=== PATIENT | female | born 1975 | race Two or more races ===

== ENCOUNTER → 2023-11-26 13:01 | Outpatient (REF) | payer OTHER, SELFPAY | LOC: RAD 13:01 | PROVIDERS: ATTENDING PHYSICIAN Student in an Organized Health Care Education/Training Program | DX: M54.16 Radiculopathy, lumbar region (principal) | CPT/HCPCS: 72110; 73522 ==

== ENCOUNTER 2024-01-18 10:43 | Emergency (ER) | payer OTHER, SELFPAY ==
[2024-01-18 10:44] VITALS: BP 139/82
[2024-01-18 11:40] VITALS: BMI 24.4
[2024-01-18 11:50] VITALS: BP 114/72
[2024-01-18 12:00] VITALS: BP 112/67
[2024-01-18 12:00] LABS: % Basophils 0.2 % (0-2); % Eosinophils 0.1 % (0-6); % Immature Granulocytes 1.9 % (0-0.5); % Lymphocytes 2.7 % (20.5-51.1); % Monocytes 3.8 % (1.7-9.3); % Neutrophils 91.3 % (42.2-75.2); Absolute Immature Granulocytes 0.3 10^3/uL (0-0.05); Absolute Lymphocytes 0.5 10^3/uL (1.2-3.4); Absolute Monocytes 0.6 10^3/uL (0.1-0.6); Hematocrit 35.5 % (37.0-47.0); Hemoglobin 12.1 g/dL (12.0-16.0); Mean Corp Hgb Conc. 34.1 g/dL (33.0-37.0); Mean Corpuscular Hgb 30.6 pg (27.0-31.0); Mean Corpuscular Volume 89.6 fL (81.0-99.0); Mean Platelet Volume 9.4 fL (7.4-10.4); Nucleated Red Blood Cells % 0 %; Platelet Count 341 10^3/uL (130-400); Red Blood Cell Count 3.96 10^6/uL (4.20-5.40); Red Cell Dist. Width 13.1 % (11.5-14.5); White Blood Cell Count 16.4 10^3/uL (4.8-10.8)
[2024-01-18 12:01] LABS: Urine Albumin Negative (Neg - Trace); Urine Bilirubin Negative (Negative); Urine Character Clear (Clear); Urine Color Yellow; Urine Glucose Negative (Negative); Urine Ketone Negative (Negative); Urine Leukocyte Trace (Negative); Urine Nitrite Negative (Negative); Urine Occult Blood Negative (Negative); Urine Urobilinogen Negative (Neg - 1+)
[2024-01-18 12:15] LABS: ALT (SGPT) 33 U/L (0-35); AST (SGOT) 23 U/L (14-36); Albumin 4.3 g/dl (3.5-5.0); Alkaline Phosphatase 81 U/L (38-126); Blood Urea Nitrogen 13 mg/dl (7-17); Calcium 10.3 mg/dl (8.4-10.2); Carbon Dioxide 28 mmol/L (22-30); Chloride 104 mmol/L (98-107); Estimated Creatinine Clearance 99 ml/min; Glucose 98 mg/dl (70-99); Potassium 4.3 mmol/L (3.5-5.1); Sodium 139 mmol/L (135-145); Total Bilirubin 0.7 mg/dl (0.2-1.3); Total Protein 7.1 g/dl (6.3-8.2); eGFR > 60.00
[2024-01-18 12:30] LABS: Urine Bacteria Few (Negative); Urine Red Blood Cell 0-2 /HPF (0-2)
--- NOTE | 2024-01-18 13:34 | ED.GENMED ---
History of Present Illness
General
Chief Complaint: Swelling
Source: patient
Exam Limitations: none
Time Seen by Provider: 01/18/24 10:58
Nursing documentation reviewed up to this point in time: agreed with
History of Present Illness
History of Present Illness:
48-year-old female presents for bilateral leg swelling over the past 2 days. About 6 weeks ago she stated after she was having sciatica in the right leg she had an MRI at [facility] and was diagnosed with a 'sacral mass.' She had a biopsy and states the
results were 'inconclusive,' and the specimen was sent to the [facility] and she is awaiting the histopathology on that. She sees Dr. Marcin Vogel, neurosurgeon at [facility]. She called his office because of her swelling that she noted over the past 2
days.
She was told to come to the ER for evaluation.
She has persistent pain in the low back and down her right leg, but today feels pain radiating down both legs. She denies weakness in the legs.
Her medications include:
Fentanyl patch
Dexamethasone
Aleve 4 times daily
Docusate sodium
Senna
She had a normal bowel movement today. She denies loss of control of bowel or bladder. She denies neurological weakness in her legs.
Past History
Past History
ED Past Medical History: Other (Sacral mass, right low back pain with sciatica)
ED Past Surgical History: Other ([place] teeth)
Social History
Tobacco: Non-smoker
Alcohol: None
Personal:
Living: with family
Employment: Employed
Review of Systems
Review of Systems
Allergies reviewed?: Yes
All Other Systems: ROS reviewed and negative except as documented in HPI and ROS
Constitutional: Denies fever, fatigue or chills
Cardiac: Denies chest pain
ABD/GI: Denies abdominal pain or constipated
: Denies incontinence or difficulty voiding
Musculoskeletal: Reports edema ( swelling of both of her legs); Denies joint swelling or back pain (radiates down both posterior thighs today, usually only down the right leg)
Skin: Reports no symptoms
Neurological: Reports no symptoms
Phy Exam
Physical Exam
Physical Exam:
GENERAL: No acute distress. A&Ox3.
CONSTITUTIONAL: Afebrile.
EYES: clear, conjunctivae normal
RESPIRATORY: Regular respirations, nonlabored, lungs clear.
CARDIOVASCULAR: Regular rate and rhythm, no murmurs, no rubs.
GI: Soft, nontender, normal BS
MUSCULOSKELETAL: No spinal bony tenderness, full ROM, ambulating w normal gait. Moves with ease. Well perfused. Subjective swelling both LE's, no pitting, mild swelling right ankle noted, no notable swelling otherwise. Distal n/v intact.
SKIN: Warm, dry, normal
PSYCH: Normal mood and affect. Well kept, interactive and appropriate
NEUROLOGIC: Awake, alert and oriented. No focal neurological deficits. Strength 5/5 throughout. Dorsi and plantar flexion intact. Normal patellar reflexes. Ambulates with steady gait.
Scores
Heart Failure Risk
Heart Failure Risk Score: Not Applicable
Course
Orders/Labs/Results
Orders:
Orders
01/18/24 11:[address] [CT Pelvis With Iv Contrast] Urgent
Comment:
Reason For Exam: uche leg swelling, know sacral mass
US Periph Venous LOWER Ext Uche Urgent
Comment:
Reason For Exam: swelling, being w/u for sacral mass
01/18/24 11:48
Complete Blood Count/With Diff Urgent
Comprehensive Metabolic Panel Urgent
HCG, Serum Qualitative Screen Urgent
Comment: ADD ON
Urinalysis Reflex To Culture Urgent
Date Specimen was Collected: 01/18/24
Time Specimen was Collected: 11:41
Urine Microscopic Reflex Cult Urgent
01/18/24 12:18
Add On- LAB Urgent
Tests Added?: hcg
06/21/24 12:19
Add On- LAB Urgent
Tests Added?: serum HCG qualitative
Abnormal Lab Results
01/18/24
11:48
WBC 16.4 H 10^3/uL
(4.8-10.8)
RBC 3.96 L 10^6/uL
(4.20-5.40)
Hct 35.5 L %
(37.0-47.0)
Abs Immat Gran (auto) 0.3 H 10^3/uL
(0-0.05)
Absolute Neuts (auto) 15.0 H 10^3/uL
(1.4-6.5)
Absolute Lymphs (auto) 0.5 L 10^3/uL
(1.2-3.4)
Immature Gran % 1.9 H %
(0-0.5)
Neutrophils % 91.3 H %
(42.2-75.2)
Lymphocytes % 2.7 L %
(20.5-51.1)
Calcium 10.3 H mg/dl
(8.4-10.2)
Leukocyte Esterase Rfl Trace A
(Negative)
Urine Bacteria (Reflex) Few A
(Negative)
01/18/24 11:48
01/18/24 11:48
Vital Signs
Initial and Last Documented VS:
Initial Vital Signs
Temp Pulse Resp BP Pulse Ox
98.2 F 102 18 139/82 100
01/18/24 10:44 01/18/24 10:44 01/18/24 10:44 01/18/24 10:44 01/18/24 10:44
Last Documented Vital Signs
Temp Pulse Resp BP Pulse Ox
98.2 F 102 18 112/67 99
01/18/24 10:44 01/18/24 10:44 01/18/24 10:44 01/18/24 12:00 01/18/24 16:15
MDM/Problems Addressed
Differential Diagnosis Includes:
Cauda equina, DVT, pelvic mass occluding vessels of the pelvis/LEs
MDM/Problems Addressed:
48-year-old female presents for bilateral leg swelling over the past 2 days. About 6 weeks ago she stated after she was having sciatica in the right leg she had an MRI at [facility] and was diagnosed with a 'sacral mass.' She had a biopsy and states the
results were 'inconclusive,' and the specimen was sent to the [facility] and she is awaiting the histopathology on that. She sees Dr. Marcin Vogel, neurosurgeon at [facility]. She called his office because of her swelling that she noted over the past 2
days.
She was told to come to the ER for evaluation.
She has persistent pain in the low back and down her right leg, but today feels pain radiating down both legs. She denies weakness in the legs.
She had a normal bowel movement today. She denies loss of control of bowel or bladder. She denies neurological weakness in her legs.
12:30 PM: CBC: WBC 16.4 With elevated neutrophils (pt on steroid)
CMP: Normal
hCG negative
UA negative
4:[address] pelvis with IV contrast radiology report read:
IMPRESSION:There is an expansile destructive noncalcified soft tissue mass in the right sacrum and posterior aspect of the right ilium, crossing the sacroiliac joint and measuring approximately 5.7 x 9.2 x 8.0 cm in AP, transverse and craniocaudal
dimensions respectively. 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
Ultrasound bilateral lower extremities negative for DVT
Results discussed with nurse practitioner Rebeca Lima at [facility] who is the 1 who spoke with patient earlier today and sent her here. Rebeca states they were simply concerned about vascular occlusion or cauda equina, none of which the
patient has. Rebeca states that the patient is aware of her diagnosis and that today's CAT scan is no different than what has been discussed with her in the past.
Rebeca states that the biopsy results for them showed atypical cells and were sent out to [facility] to further differentiate so that they can determine the proper treatment for her.
She states that patient does have a follow-up appointment with oncology on 01/21.
I discussed the findings with the patient, she was aware
She will keep her follow-up appointment as scheduled.
She wonders what she could do about the swelling in her legs, no significant swelling objectively but we discussed her elevating her legs is much as she can, compression stockings which she states she thinks she has some at home.
Patient ambulated out with normal gait. She was very appreciative of the care
*Critical Care Note
Total Time (30-74mins, 75-104mins- exclusive of procedures): Not Applicable
ED Attending Note
-
Portions of this chart may have been created with voice recognition software.� Occasional wrong word or��sound alike� substitutions may have occurred due to the inherent limitations of voice recognition software.
Discharge Plan
Departure
Patient Disposition: Home (Routine Discharge)
Date of Disposition: 01/18/24
Time of Disposition: 16:39
Patient with high blood pressure during this ER visit?: No
Condition: Fair
Discharge Problem:
Sacral mass
Prescriptions:
No Action
phenazopyridine [Pyridium] 100 mg tablet
100 mg PO TID PRN (Reason: Pain) Qty: 7 0RF
Referrals:
Linda Peep PA-C [Family Provider] -
Activity Restrictions/Additional Instructions:
As we discussed, I spoke with nurse practitioner Rebeca Christy who reviewed your CAT scan results and agrees there is nothing new in today's CAT scan from your previous ones.
There is no indication of any blood vessel occlusion.
Your ultrasound shows no clot.
Your blood work and urine tests are normal. Mild elevation in WBC most likely from the steroid you are taking
Keep your oncology appointment for 01/21.
Seek medical care IMMEDIATELY for loss of bowel or bladder control, weakness in the legs or numbness in the saddle area (inner thighs and vaginal areas)
Interventions
Interventions:
*Risk Screen - Suicide Last Done: 01/18/24 10:49
*General Assessment Last Done: 01/18/24 10:44
*Neglect/Abuse Screening Last Done: 01/18/24 10:49
ED- Fall Risk Assessment Last Done: 01/18/24 17:05
*ED COVID-19 Vaccine History Last Done: 01/18/24 10:44
*Nursing Disposition Last Done: 01/18/24 17:05
ED- Cardiac Assessment Last Done: 01/18/24 11:42
ED- Pulmonary Assessment Last Done: 01/18/24 11:42
ED-Skin Assessment Last Done: 01/18/24 11:42
Discharge Date and Time
Discharge Date/Time: 01/18/24 17:06
Print Language: YI
[2024-01-18 14:13] LABS: HCG, Serum Qualitative Screen Negative
== END 2024-01-18 17:06 | disposition home or self-care (01) ==
LOC: EMR 10:43
PROVIDERS: Registered Nurse; EMERGENCY PHYSICIAN Emergency Medicine; FAMILY PHYSICIAN Student in an Organized Health Care Education/Training Program
DX: M53.3 Sacrococcygeal disorders, not elsewhere classified (principal); R60.9 Edema, unspecified; M79.604 Pain in right leg; M79.605 Pain in left leg
CPT/HCPCS: 99284; 72193; 80053; 81003; 81015; 84703; 85025; 93970; Q9967

== ENCOUNTER 2024-06-09 12:35 | Emergency (ER) | payer OTHER, SELFPAY ==
[2024-06-09 12:37] VITALS: BP 118/77
[2024-06-09] MEDS: MORPHINE SULFATE 15 MG PO (16:34)
--- NOTE | 2024-06-09 16:59 | ED.GENMED ---
History of Present Illness
General
Chief Complaint: Fall
Source: patient
Exam Limitations: none
Time Seen by Provider: 06/09/24 13:35
Nursing documentation reviewed up to this point in time: agreed with
History of Present Illness
History of Present Illness:
49-year-old female presenting to the emergency department today with concerns of right knee pain right pelvic pain after a trip and fall 2 days ago. Discomfort ongoing to the right hip. Difficulty walking. Denies any changes in bowel movements or
bladder. Denies numbness or weakness. Denies any head trauma neck pain.
Past History
Past History
ED Past Medical History: Other (Sacral mass, right low back pain with sciatica)
ED Past Surgical History: Other ([place] teeth)
Social History
Tobacco: Non-smoker
Alcohol: None
Personal:
Living: with family
Employment: Employed
Review of Systems
Review of Systems
Allergies reviewed?: Yes
All Other Systems: ROS reviewed and negative except as documented in HPI and ROS
Phy Exam
Physical Exam
Physical Exam:
GENERAL: Alert , in no apparent distress
EYE: pupils equal and reactive
NECK: Supple, no significant adenopathy.
ENT: o/p clr, mmm.
CARDIAC: Regular rate and rhythm .
LUNGS: Clear breath sounds bilaterally, no acute respiratory distress, no wheezes/rales/rhonchi
ABDOMEN: Soft, without focal tenderness, no r/g, no cvat
NEUROLOGICAL: Alert and oriented, no focal neuro deficits
SKIN: Warm and dry, skin intact.
MUSCULOSKELETAL: Right-sided hip pain to palpation mainly to the iliac, no pain to the femur no significant pain to the knee good range of motion of the knee and foot increased discomfort with movement of the hip no edema, well perfused.
PSYCH: Normal and appropriate interaction.
Course
Orders/Labs/Results
Orders:
Orders
06/09/24 13:36
CR Knee- Right 4 Or More View* Urgent
Comment:
Reason For Exam: right knee
Hip, Right 2-3 Views [CR Hip - RT w/wo Pel 2-3 Vw*] Urgent
Comment:
Reason For Exam: right pelvis hip pain
Include a pelvis x-ray?: Yes
06/09/24 16:04
CT Pelvis W/o Iv Contrast Stat
Reason For Exam: right hip pain
06/09/24 16:08
Morphine Sulfate [Morphine Oral Solution] 15 mg PO NOW STA
06/09/24 16:15
Morphine Sulfate 15 mg PO NOW STA
06/09/24 16:20
Morphine Sulfate 15 mg PO NOW STA
Vital Signs
Initial and Last Documented VS:
Initial Vital Signs
Temp Pulse Resp BP Pulse Ox
98.6 F 86 18 118/77 99
06/09/24 12:37 06/09/24 12:37 06/09/24 12:37 06/09/24 12:37 06/09/24 12:37
Last Documented Vital Signs
Temp Pulse Resp BP Pulse Ox
98.6 F 86 18 118/77 99
06/09/24 12:37 06/09/24 12:37 06/09/24 12:37 06/09/24 12:37 06/09/24 12:37
MDM/Problems Addressed
MDM/Problems Addressed:
49-year-old female presenting to the emergency department today with concerns of right knee right hip pain over the past 2 days difficulty walking after a fall. Vital signs are normal increased discomfort with hip movement. No redness or warmth.
No fevers no systemic symptoms no head trauma. Initial x-rays without acute abnormalities. 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 Concerning this plan for CT scan for assessment of potential occult fracture. CT scan
showing previously known sarcoma slightly increased in size since previous CT scan 5 months ago also potential acute pathologic fracture of the S1 vertebral segment appears new from5 months ago however unclear if this is truly acute. Otherwise
patient here able to ambulate no neurologic symptoms stable for close outpatient follow-up with her doctor at [facility] who has been managing this as an outpatient. Return precaution
*Critical Care Note
Total Time (30-74mins, 75-104mins- exclusive of procedures): Not Applicable
ED Attending Note
-
Portions of this chart may have been created with voice recognition software.� Occasional wrong word or��sound alike� substitutions may have occurred due to the inherent limitations of voice recognition software.
Discharge Plan
Departure
Patient Disposition: Home (Routine Discharge)
Date of Disposition: 06/09/24
Time of Disposition: 18:34
Patient with high blood pressure during this ER visit?: No
Condition: Good
Covid-19: Not Applicable
Discharge Problem:
Acute hip pain, Closed sacral fracture
Prescriptions:
No Action
phenazopyridine [Pyridium] 100 mg tablet
100 mg PO TID PRN (Reason: Pain) Qty: 7 0RF
Referrals:
Linda Pepe PA-C [Family Provider] -
Activity Restrictions/Additional Instructions:
You came to the emergency department today with concerns of ongoing hip pain after a fall. Please follow closely with your outpatient Dr. Urban. Return to the emergency department for any worsening, new or concerning symptoms.
Interventions
Interventions:
*General Assessment Last Done: 06/09/24 13:39
*Neglect/Abuse Screening Last Done: 06/09/24 13:39
*ED COVID-19 Vaccine History Last Done: 06/09/24 13:39
ED-Musculoskeletal Assessment Last Done: 06/09/24 13:38
ED- Neurological Assessment Last Done: 06/09/24 13:37
ED-Skin Assessment Last Done: 06/09/24 13:39
Discharge Date and Time
Print Language: [id number]
[2024-06-09 18:00] VITALS: BP 114/86
== END 2024-06-09 19:02 | disposition home or self-care (01) ==
LOC: EMR 12:35
PROVIDERS: EMERGENCY PHYSICIAN Emergency Medicine; FAMILY PHYSICIAN Student in an Organized Health Care Education/Training Program
DX: S32.19XA Other fracture of sacrum, initial encounter for closed fracture (principal); M25.551 Pain in right hip; W01.0XXA Fall on same level from slipping, tripping and stumbling without subsequent striking against object, initial encounter
CPT/HCPCS: 99284; 72192; 73502; 73564

== ENCOUNTER 2024-06-11 10:28 | Inpatient (IN) | payer OTHER, SELFPAY ==
[2024-06-10 22:21] VITALS: BP 109/63
--- NOTE | 2024-06-10 22:53 | ED.GENMED ---
History of Present Illness
<KALYANI Riley - Last Filed: 06/11/24 05:12>
General
Chief Complaint: Musculo-Skeletal Complaint
Source: patient
Time Seen by Provider: 06/10/24 22:53
Nursing documentation reviewed up to this point in time: agreed with
History of Present Illness
History of Present Illness:
A 49-year-old female with a past medical history of sarcoma of the hip presents to the emergency room wanting pain management. Patient was seen yesterday for an acute fall Sunday evening for which she was worked up and diagnosed with an acute S1
fracture. Patient stated she planned to go to [facility], [place] but the wait was too long; therefore, her doctor at [facility] [place] told her to come here for admission and pain management. She states the pain has not gotten better since the fall. She admits to taking 2
morphine pills today with mild relief. She denies abdominal pain, urinary incontinence or retention, bowel incontinence or retention.
Past History
<KALYANI Riley - Last Filed: 06/11/24 05:12>
Past History
ED Past Medical History: Other (Sacral mass, right low back pain with sciatica)
ED Past Surgical History: Other (Pingree teeth)
Social History
Tobacco: Non-smoker
Alcohol: None
Personal:
Living: with family
Employment: Employed
Review of Systems
<KALYANI Riley - Last Filed: 06/11/24 05:12>
Review of Systems
Allergies reviewed?: Yes
Phy Exam
<KALYANI Riley - Last Filed: 06/11/24 05:12>
General Physical Exam
General Presentation: mild distress (In visible pain)
General age: appears stated age
General Skin: warm
General Habitus: normal
General Mental: alert
General Hydration: appears well hydrated
ENT Exam
ENT Exam: neck supple
Eye Exam
Eye Exam: conjunctiva normal
Cardiovascular Exam
Cardiovascular Exam: regular rate/rhythm
Pulmonary Exam
Pulmonary Exam: lungs clear and no respiratory distress
Gastrointestinal Exam
Gastrointestinal Exam: non tender and non distended
Neurological Exam
Neurological Exam: alert and oriented x3
Musculoskeletal Exam
Musculoskeletal Exam: full ROM (Extremely limited range of motion of right hip due to pain) and back pain
Skin Exam
Skin Exam: normal color, warm/dry and no rash
Psychiatric Exam
Psychiatric Exam: normal mood/affect
Course
<KALYANI Riley - Last Filed: 06/11/24 05:12>
Orders/Labs/Results
Orders:
Orders
06/11/24 00:16
HYDROmorphone [Dilaudid] 1 mg IV NOW STA
Ondansetron Injectable [Zofran] 4 mg IV NOW STA
06/11/24 00:25
Basic Metabolic Panel Urgent
Complete Blood Count/With Diff Urgent
06/11/24 00:53
Admit/Transfer Patient As Directed
Co-Sign Provider:
Level of Care: Observation services
Assign to:: Medical/Surgical
Physician / Group: hospitalist
Diagnosis: hip pain
Reason for Hospitalization: ambulatory dysfunction
Code Status As Directed
Resuscitation Status: Full Code
PRN Pain Medication Management As Directed
May give lesser potent ordered pain med per pt: Yes
preference::
Protocol:: Medication orders for pain may be administered in a
manner that supports deferring to patient preference
when the pt is:
- Requesting an ordered lesser potent pain medication.
Least to most potent pain medications are defined
as: acetaminophen < NSAID < tramadol < opioids
(morphine, oxycodone, hydromorphone).
- Requesting a lesser dose of the same medication IF
ORDERED.
- Requesting a less intrusive route of administration
if both routes are prescribed by the provider (PO <
IV).
06/11/24 01:49
Bisacodyl [Dulcolax] 10 mg RECTAL [id number] PRN
Docusate W/Senna [Senokot-S] 1 tablet PO BIDPRN PRN
HYDROmorphone [Dilaudid] 1 mg IV Q4HPRN PRN
Morphine Sulfate [Morphine Oral Solution] 15 mg PO Q6HPRN PRN
Ondansetron Injectable [Zofran] 4 mg IV Q6HPRN PRN
Polyethylene Glycol Powder [Miralax] 17 grams PO DAILYPRN PRN
06/11/24 01:49
Activity As Directed
Activity Level: With Assistance
Fentanyl Patch Confirmation [id number]
Vital Signs As Directed
Frequency: Per unit guidelines
DX Deep Vein Thrombosis Video Routine
06/11/24 04:00
Acetaminophen [Tylenol] 650 mg PO Q4HWA
06/11/24 Breakfast
Regular
At Your Request: Full Participation
06/11/24 08:00
Duloxetine Delayed Release [Cymbalta Delayed Release] 60 mg PO DAILY
Pantoprazole [Protonix] 40 mg PO DAILY
06/11/24 18:00
Enoxaparin Sodium [Lovenox] 40 mg SC QPM
06/11/24 22:00
Pregabalin [Lyrica] 50 mg PO HS
Abnormal Lab Results
06/11/24
00:25
RBC 2.90 L 10^6/uL
(4.20-5.40)
Hgb 8.6 L g/dL
(12.0-16.0)
Hct 25.7 L %
(37.0-47.0)
Plt Count 437 H 10^3/uL
(130-400)
Absolute Lymphs (auto) 0.6 L 10^3/uL
(1.2-3.4)
Absolute Monos (auto) 0.7 H 10^3/uL
(0.1-0.6)
Neutrophils % 76.2 H %
(42.2-75.2)
Lymphocytes % 9.4 L %
(20.5-51.1)
Monocytes % 11.6 H %
(1.7-9.3)
Glucose 101 H mg/dl
(70-99)
06/11/24 00:25
06/11/24 00:25
Vital Signs
Initial and Last Documented VS:
Initial Vital Signs
Temp Pulse Resp BP Pulse Ox
97.8 F 78 18 109/63 100
06/10/24 22:21 06/10/24 22:21 06/10/24 22:21 06/10/24 22:21 06/10/24 22:21
Last Documented Vital Signs
Temp Pulse Resp BP Pulse Ox
98.7 F 66 16 98/59 99
06/11/24 02:15 06/11/24 02:15 06/11/24 02:15 06/11/24 02:15 06/11/24 02:15
<Major Mon, DO - Last Filed: 06/11/24 00:26>
Orders/Labs/Results
Orders:
Orders
06/11/24 00:16
HYDROmorphone [Dilaudid] 1 mg IV NOW STA
Ondansetron Injectable [Zofran] 4 mg IV NOW STA
06/11/24 00:25
Basic Metabolic Panel Urgent
Complete Blood Count/With Diff Urgent
06/11/24 00:53
Admit/Transfer Patient As Directed
Co-Sign Provider:
Level of Care: Observation services
Assign to:: Medical/Surgical
Physician / Group: hospitalist
Diagnosis: hip pain
Reason for Hospitalization: ambulatory dysfunction
Code Status As Directed
Resuscitation Status: Full Code
PRN Pain Medication Management As Directed
May give lesser potent ordered pain med per pt: Yes
preference::
Protocol:: Medication orders for pain may be administered in a
manner that supports deferring to patient preference
when the pt is:
- Requesting an ordered lesser potent pain medication.
Least to most potent pain medications are defined
as: acetaminophen < NSAID < tramadol < opioids
(morphine, oxycodone, hydromorphone).
- Requesting a lesser dose of the same medication IF
ORDERED.
- Requesting a less intrusive route of administration
if both routes are prescribed by the provider (PO <
IV).
06/11/24 01:49
Bisacodyl [Dulcolax] 10 mg RECTAL [id number] PRN
Docusate W/Senna [Senokot-S] 1 tablet PO BIDPRN PRN
HYDROmorphone [Dilaudid] 1 mg IV Q4HPRN PRN
Morphine Sulfate [Morphine Oral Solution] 15 mg PO Q6HPRN PRN
Ondansetron Injectable [Zofran] 4 mg IV Q6HPRN PRN
Polyethylene Glycol Powder [Miralax] 17 grams PO DAILYPRN PRN
06/11/24 01:49
Activity As Directed
Activity Level: With Assistance
Fentanyl Patch Confirmation [id number]
Vital Signs As Directed
Frequency: Per unit guidelines
DX Deep Vein Thrombosis Video Routine
06/11/24 04:00
Acetaminophen [Tylenol] 650 mg PO Q4HWA
06/11/24 Breakfast
Regular
At Your Request: Full Participation
06/11/24 08:00
Duloxetine Delayed Release [Cymbalta Delayed Release] 60 mg PO DAILY
Pantoprazole [Protonix] 40 mg PO DAILY
06/11/24 18:00
Enoxaparin Sodium [Lovenox] 40 mg SC QPM
06/11/24 22:00
Pregabalin [Lyrica] 50 mg PO HS
Abnormal Lab Results
06/11/24
00:25
RBC 2.90 L 10^6/uL
(4.20-5.40)
Hgb 8.6 L g/dL
(12.0-16.0)
Hct 25.7 L %
(37.0-47.0)
Plt Count 437 H 10^3/uL
(130-400)
Absolute Lymphs (auto) 0.6 L 10^3/uL
(1.2-3.4)
Absolute Monos (auto) 0.7 H 10^3/uL
(0.1-0.6)
Neutrophils % 76.2 H %
(42.2-75.2)
Lymphocytes % 9.4 L %
(20.5-51.1)
Monocytes % 11.6 H %
(1.7-9.3)
Glucose 101 H mg/dl
(70-99)
06/11/24 00:25
06/11/24 00:25
Vital Signs
Initial and Last Documented VS:
Initial Vital Signs
Temp Pulse Resp BP Pulse Ox
97.8 F 78 18 109/63 100
06/10/24 22:21 06/10/24 22:21 06/10/24 22:21 06/10/24 22:21 06/10/24 22:21
Last Documented Vital Signs
Temp Pulse Resp BP Pulse Ox
98.7 F 66 16 98/59 99
06/11/24 02:15 06/11/24 02:15 06/11/24 02:15 06/11/24 02:15 06/11/24 02:15
<KALYANI Riley - Last Filed: 06/11/24 05:12>
MDM/Problems Addressed
Differential Diagnosis Includes:
Pain exacerbation due to sacral mass versus pain exacerbation due to new S1 fracture.
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
<KALYANI Riley - Last Filed: 06/11/24 05:12>
*Critical Care Note
Total Time (30-74mins, 75-104mins- exclusive of procedures): Not Applicable
<Major Mon DO - Last Filed: 06/11/24 00:26>
Update Note
Update Note:
06/11/2024 0026 AM: Patient received a copy of her CAT scan results from yesterday.
ED Attending Note
<KALYANI Riley - Last Filed: 06/11/24 05:12>
-
Portions of this chart may have been created with voice recognition software.� Occasional wrong word or��sound alike� substitutions may have occurred due to the inherent limitations of voice recognition software.
<Major Mon DO - Last Filed: 06/11/24 00:26>
ED Attending Note
Patient seen and examined by attending physician: Yes
I performed the substantive portion of visit, reviewed & personally made and approve the management plan that is documented in note by myself or ARNOLD.: Yes
ED Attending Note:
49-year-old female presents to the emergency department increased pain in her pelvis. Patient is being treated for sarcoma at [facility]. She fell recently and has been treated for a pelvic fracture which is rendered her nearly
immobile. Was seen yesterday in this emergency department after another fall on Sunday. She was diagnosed with an acute S1 fracture. The pain was unbearable so she went to [facility] emergency department and was unhappy with the
wait time so they came here. She spoke to her oncologist who advised her to come here for admission for pain management. Patient took 2 morphine pills with minimal relief. Denies any new pain. Patient was seen in conjunction with the PA student.
I have reviewed and agree with the history and treatment plan presented. On my independent physical exam, patient is awake, alert, and oriented x3 resting on the bed. Heart is regular rate and rhythm. No audible wheezing heard. Skin is warm and
dry. Patient mentating appropriately. Accompanied by significant other who is present at the bedside.
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 It is increased in size since 01/18/2024.Patient to be admitted to the hospitalist service.
Discharge Plan
Departure
Patient Disposition: Admit
Date of Disposition: 06/11/24
Time of Disposition: 00:22
Admit to: Telemetry
Presentation/result/management discussed w/ accepting MD/DO: Hospitalist
Condition: Fair
Discharge Problem:
Sarcoma, s1 fracture
Interventions
Interventions:
*Risk Screen - Suicide Last Done: 06/10/24 22:21
*General Assessment Last Done: 06/10/24 22:21
*Neglect/Abuse Screening Last Done: 06/10/24 22:21
*Nursing Disposition Last Done: 06/11/24 01:43
ED-Musculoskeletal Assessment Last Done: 06/11/24 00:20
Discharge Date and Time
Discharge Date/Time: 06/11/24 01:47
[2024-06-11 00:08] VITALS: BP 105/61
[2024-06-11] MEDS: DILAUDID 1 MG IV ×4 (00:25→23:28)
[2024-06-11] MEDS: ZOFRAN 4 MG IV (00:25)
--- NOTE | 2024-06-11 00:42 | HPS.HSE ---
Family Physician
-
Family Physician: Linda Pepe PA-C
Chief Complaint
-
Hip pain
History of Present Illness
This is a 49-year-old with a past medical history of hip sarcoma,
49-year-old female presenting to the emergency department today with concerns of right knee right hip pain over the past 2 days difficulty walking after a fall. Vital signs are normal increased discomfort with hip movement. No redness or warmth.
No fevers no systemic symptoms no head trauma. Initial x-rays without acute abnormalities. 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 Concerning this plan for CT scan for assessment of potential occult fracture. CT scan
showing previously known sarcoma slightly increased in size since previous CT scan 5 months ago also potential acute pathologic fracture of the S1 vertebral segment appears new from5 months ago however unclear if this is truly acute. Otherwise
patient here able to ambulate no neurologic symptoms stable for close outpatient follow-up with her doctor at [facility] who has been managing this as an outpatient. Return precaution
Patient was seen yesterday for an acute fall Sunday evening for which she was worked up and diagnosed with an acute S1 fracture. Patient stated she planned to go to [facility] but the wait was too long; therefore, her doctor at [facility] told her to come
here for admission and pain management. She states the pain has not gotten better since the fall. She admits to taking 2 morphine pills today with mild relief. She denies abdominal pain, urinary incontinence or retention, bowel incontinence or
retention.
Medical History
Past Medical History
Past Medical History: Reports Other (sarcoma)
Past Surgical History: Reports None
Social History
Tobacco: Non-smoker
Alcohol: Occasional
Drug: None
Personal:
Living: With Family
Employment: Employed
Family History
Family History: Cancer (father with esophageal cancer, smoker)
Allergies / Home Medications
Allergies reflects when Allergies were last updated in [facility].
Home Medications with original date entered in [facility]
Allergy/Medication List:
Allergies
Allergy/AdvReac Type Severity Reaction Status Date / Time
No Known Allergies Allergy Verified 06/09/24 12:38
Home Medications
morphine 15 mg tablet, 15 mg PO Q6H PRN Pain
Duloxetine 30 mg tablet, 60mg PO daily
Pregabalin 50mg tablet, 50mg PO HS
Fentanyl 50mcg transdermal patch, 50mcg applied to skin q 72HR
Review of Systems
-
History Source: Patient
Constitutional: Reports No Symptoms
EENT: Reports No Symptoms
Respiratory: Reports No Symptoms
Cardiac: Reports No Symptoms
Abdomen/GI: Reports No Symptoms
: Reports No Symptoms
Musculoskeletal: Reports Joint Pain
Skin: Reports No Symptoms
Neurological: Reports No Symptoms
Endocrine: Reports No Symptoms
Hematologic/Lymphatic: Reports No Symptoms
Psych: Reports No Symptoms
Physical Exam
Vital Signs
Vital Signs
Temp Pulse Resp BP Pulse Ox
97.8 F 69 18 105/61 100
06/10/24 22:21 06/11/24 00:08 06/11/24 00:08 06/11/24 00:08 06/11/24 00:08
Physical Exam
General: Well Developed, Well Nourished and Pain
HEENT: NormoCephalic, Anicteric, Moist mucous membranes and Atraumatic
Respiratory: Clear
Cardiac: S1/S2 and Regular Rhythm
Breast: Deferred by me
GI: Soft, Non Tender and Non Distended
Rectal: Deferred by Provider
Genito-urinary: Deferred by me
Musculoskeletal: No Clubbing, No Cyanosis and No Edema
Skin: Warm
Neuro: AO x 3
Hematologic/Lymphatic: No Lymphadenopathy
Psych: Calm
Data Reviewed
-
Old Records: Reviewed
Impression/Plan
-
IMPRESSION:
49 y.o female with history of hip sarcoma being followed by Onc at [facility] who had sacral hairline fracture in march with pain requiring a pain regimen then had a more recent fall for which she was seen in ED today showing potential acute
pathologic fracture of the S1 vertebral segment compared to march. She was initially able to ambulate and was discharged from ED. Having discussed with her Oncologist, she was sent back for admission here for [facility] management pending transfer
to [facility] for oncological-orthopedic evaluation
PLAN:
1. HIP Pain - Acute on chronic with ambulatory dysfunction. Subacute or acute S1 verterbral segment fracture.
- admit to med/surg obs
- addition of dilaudid 1mg q 4 hours for severe pain
- continue morphine 15mg q 6 hours for moderate pain
- fentanyl 50 mcg q 72
- continue duloxetine and pregabalin
- transfer to [facility] in am. Requesting physician was oncologist Dr. Card
DVT PPX - lovenox sq
Code status - full code
[2024-06-11 00:54] LABS: % Basophils 0.3 % (0-2); % Immature Granulocytes 0.5 % (0-0.5); % Lymphocytes 9.4 % (20.5-51.1); % Monocytes 11.6 % (1.7-9.3); % Neutrophils 76.2 % (42.2-75.2); Absolute Eosinophils 0.1 10^3/uL (0-0.7); Absolute Lymphocytes 0.6 10^3/uL (1.2-3.4); Absolute Monocytes 0.7 10^3/uL (0.1-0.6); Absolute Neutrophils 4.9 10^3/uL (1.4-6.5); Hematocrit 25.7 % (37.0-47.0); Hemoglobin 8.6 g/dL (12.0-16.0); Mean Corp Hgb Conc. 33.5 g/dL (33.0-37.0); Mean Corpuscular Hgb 29.7 pg (27.0-31.0); Mean Corpuscular Volume 88.6 fL (81.0-99.0); Mean Platelet Volume 9.3 fL (7.4-10.4); Nucleated Red Blood Cells % 0 %; Platelet Count 437 10^3/uL (130-400); Red Cell Dist. Width 12.9 % (11.5-14.5); White Blood Cell Count 6.4 10^3/uL (4.8-10.8)
[2024-06-11 01:17] LABS: Blood Urea Nitrogen 9 mg/dl (7-17); Calcium 9.1 mg/dl (8.4-10.2); Carbon Dioxide 29 mmol/L (22-30); Chloride 100 mmol/L (98-107); Glucose 101 mg/dl (70-99); Potassium 4.5 mmol/L (3.5-5.1); Sodium 140 mmol/L (135-145); eGFR > 60.00
[2024-06-11 02:15] VITALS: BP 98/59
[2024-06-11 02:16] VITALS: BMI 22.2
[2024-06-11] MEDS: MORPHINE ORAL SOLUTION 15 MG PO (02:58)
[2024-06-11] MEDS: DURAGESIC 50 MCG/HR PATCH 1 PATCH TRANSDERM (03:07)
[2024-06-11] MEDS: TYLENOL PO ×3 (03:07→07:42)
[2024-06-11] MEDS: DILAUDID 0.5 MG IV (06:31)
[2024-06-11 07:25] VITALS: BP 100/65
[2024-06-11] MEDS: CYMBALTA DELAYED RELEASE 60 MG PO (07:38)
[2024-06-11] MEDS: PROTONIX 40 MG PO (07:38)
[2024-06-11] MEDS: MS CONTIN (EXTENDED RELEASE) 15 MG PO (10:13)
--- NOTE | 2024-06-11 11:27 | CM ---
Addendum entered by William Kumar 06/11/24 11:33:
Per UR team, pt is upgraded to inpatient level. Pt is aware.
Original Note:
CM following re: discharge planning.
Reviewed pt's chart, met with pt.
Pt is a 49 year old female, admitted with OBS status and primary dx of Hip pain. OBS status explained, OBS letter signed placed on chart, pt has a copy.
Pt reports she was born and grew up in [place], immig[place] to [place] [facility] [place] years ago, resides with and 2 children in a 2SH, 1 steps to enter. Pt stated: 'i know i have tumor, I have cancer'. Emotional support offered and provided. Pt described
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
PCP: Linda Zepeda
Pharmacy: [facility]
D/C plan: home with anticipated no needs. to transport at discharge.
CM will follow with discharge plan updates as hospitalization progresses
[2024-06-11] MEDS: TYLENOL 650 MG PO ×4 (13:05→23:29)
--- NOTE | 2024-06-11 14:17 | W.PN.UPDATE ---
Update Note
Progress Note Update
Patient continued to have significant right pelvic bone/SI joint/Hip pain
Denies any numbness/sensation change in inner thigh/buttock
no bladder or bowel dysfunction
Contacted patient primary oncologist Dr. Lemus although not in today, left message for LEADER WRITER to contact me back ,.
Increasing patient pain medication. Currently patient on MS Contin 15 mg Q6 scheduled with IV half milligram and 1 mg Dilaudid for moderate severe pain.
Also on Fentanyl 50mcg/hr patch
[2024-06-11 15:55] VITALS: BP 101/60
[2024-06-11] MEDS: MORPHINE SULFATE 15 MG PO ×2 (16:47→21:23)
[2024-06-11] MEDS: LYRICA 50 MG PO (21:23)
[2024-06-11] MEDS: DECADRON 8 MG PO (21:24)
[2024-06-11 22:40] VITALS: BP 96/59
[2024-06-12] MEDS: MORPHINE SULFATE 15 MG PO ×4 (03:06→21:04)
[2024-06-12] MEDS: TYLENOL 650 MG PO ×6 (03:06→23:00)
[2024-06-12 07:10] VITALS: BP 98/57
[2024-06-12] MEDS: CYMBALTA DELAYED RELEASE 30 MG PO (07:59)
[2024-06-12] MEDS: PROTONIX 40 MG PO (07:59)
[2024-06-12] MEDS: DECADRON 8 MG PO ×2 (07:59→21:04)
[2024-06-12] MEDS: MIRALAX PO ×2 (08:00→08:08)
[2024-06-12] MEDS: DILAUDID 1 MG IV ×2 (08:02→23:00)
[2024-06-12] MEDS: DILAUDID 0.5 MG IV ×2 (10:27→16:58)
--- NOTE | 2024-06-12 13:13 | W.PN.HOSP.TC ---
Today's Communication/Plan
-
Transfer to [facility] once bed available
Assessment / Plan
Assessment / Plan
CT pelvis
1. 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
2. ACUTE PATHOLOGIC FRACTURE of the S1 VERTEBRAL SEGMENT which appears new from 01/18/2024.
1. Sarcoma with right pelvic bone destruction
S1 pathological compression fracture
Severe pain
Ambulatory dysfunction
-CT pelvis showing large lytic/destructive osseous sarcoma of the pelvis extending through right sacroiliac joint
-Patient significant pain and related abilities from
-No saddle anesthesia/bladder/bowel dysfunction
-Patient currently on fentanyl patch 50 mcg/hr. added on morphine IR 15 mg every 6 hours and Dilaudid for breakthrough
-Minimal WB on RLE for now
-Case discussed with [facility] oncology and has been accepted for transfer for further evaluation by neurosurgery/oncological orthopedic. Patient is waiting bed at [facility]
2. GERD
-maintain on lansoprazole
3. Depression
-continue on duloextine
4. Narcotic induced constipation
-Ordered MiraLAX/Dulcolax, patient declined to use dose with concern of pain would be aggravated
Full code
Anticipated Discharge: Today
Subjective/Interval History
-
Date of Service: June 12, 2024
pain is manageable
no BM yet, declined medications yesterday
Objective Data
-
Vital Signs:
Vital Signs
Temp Pulse Resp BP Pulse Ox
97.4 F 55 18 98/57 96
06/12/24 07:10 06/12/24 07:10 06/12/24 07:10 06/12/24 07:10 06/12/24 07:10
I&O
06/11/24 06/12/24 06/13/24
06:59 06:59 06:59
Intake Total 0 / 1560
Balance 1559 156
Review of Systems
-
Respiratory: Reports No Symptoms
Cardiac: Reports No Symptoms
Abdomen/GI: Reports No Symptoms
Physical Exam
-
General: Well Nourished and No Apparent Distress
HEENT: Negative Oxygen
Neuro: Awake, Alert, Oriented and No Motor Deficits
[2024-06-12 15:10] VITALS: BP 114/59
[2024-06-12] MEDS: LYRICA 50 MG PO (21:04)
[2024-06-12 23:32] VITALS: BP 105/56
[2024-06-13] MEDS: MORPHINE SULFATE 15 MG PO ×2 (03:57→08:19)
[2024-06-13] MEDS: TYLENOL 650 MG PO ×4 (03:58→20:13)
[2024-06-13 07:10] VITALS: BP 104/47
[2024-06-13] MEDS: DILAUDID 1 MG IV ×5 (07:55→21:35)
[2024-06-13] MEDS: DECADRON 8 MG PO (08:19)
[2024-06-13] MEDS: MIRALAX 17 GRAMS PO (08:19)
[2024-06-13] MEDS: PROTONIX 40 MG PO (08:19)
[2024-06-13] MEDS: CYMBALTA DELAYED RELEASE 30 MG PO (08:19)
[2024-06-13] MEDS: TYLENOL PO (11:58)
[2024-06-13] MEDS: DULCOLAX 10 MG PO (11:58)
[2024-06-13 15:08] VITALS: BP 105/59
[2024-06-13] MEDS: MORPHINE SULFATE 22.5 MG PO ×2 (15:18→20:13)
--- NOTE | 2024-06-13 15:37 | W.PN.HOSP.TC ---
Today's Communication/Plan
-
increase morphine IR dose
laxatives for constipation
Assessment / Plan
Assessment / Plan
CT pelvis
1. 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
2. ACUTE PATHOLOGIC FRACTURE of the S1 VERTEBRAL SEGMENT which appears new from 01/18/2024.

1. Sarcoma with right pelvic bone destruction
S1 pathological compression fracture
Severe pain
Ambulatory dysfunction
-CT pelvis showing large lytic/destructive osseous sarcoma of the pelvis extending through right sacroiliac joint
-Patient significant pain and related abilities from
-No saddle anesthesia/bladder/bowel dysfunction
-Patient currently on fentanyl patch 50 mcg/hr. added on morphine IR 15 mg every 6 hours and Dilaudid for breakthrough
-Minimal WB on RLE for now
-Patient was started on oral dexamethasone 8 mg twice daily, patient concerned of long-term side effect decreased to 4 mg twice daily as no sev neurological symptoms
-Case discussed with [facility] oncology and has been accepted for transfer for further evaluation by neurosurgery/oncological orthopedic. Patient is waiting bed at [facility]
2. GERD
-maintain on lansoprazole
3. Depression
-continue on duloextine
4. Narcotic induced constipation
-Patient took MiraLAX today. Ordering oral Dulcolax 1 dose as well
Full code
Waiting for bed availability at [facility]
Anticipated Discharge: 24 - 48 hours
Subjective/Interval History
-
Date of Service: June 13, 2024
continues to have pain
been constipated, no BM
no abd pain/nausea/vomiting
Objective Data
-
Vital Signs:
Vital Signs
Temp Pulse Resp BP Pulse Ox
98.1 F 54 18 105/59 99
06/13/24 15:08 06/13/24 15:08 06/13/24 15:08 06/13/24 15:08 06/13/24 15:08
I&O
06/12/24 06/13/24 06/14/24
06:59 06:59 06:59
Intake Total 1560 / 1560 1800 / 1800
Balance 1560 / 1560 1800 / 1800
Review of Systems
-
Respiratory: Reports No Symptoms
Cardiac: Reports No Symptoms
Abdomen/GI: Reports Constipated; Denies Abdominal Pain or Nausea
Physical Exam
-
General: Well Nourished and No Apparent Distress
HEENT: Negative Oxygen
Respiratory: Clear to Auscultation
Cardiac: Regular Rhythm and S1/S2; Negative Murmur
GI: Soft and Nondistended
Neuro: Awake, Alert, Oriented and No Motor Deficits
[2024-06-13] MEDS: MORPHINE SULFATE PO (15:43)
[2024-06-13] MEDS: LYRICA 50 MG PO (20:12)
[2024-06-13] MEDS: DECADRON 4 MG PO (20:12)
[2024-06-13] MEDS: FLUSH (NSS) 5 FLUSH IV (21:36)
[2024-06-13 23:00] VITALS: BP 106/58
[2024-06-14] MEDS: DILAUDID 1 MG IV ×3 (00:36→19:46)
[2024-06-14] MEDS: TYLENOL 650 MG PO ×5 (00:36→19:45)
[2024-06-14] MEDS: FLUSH (NSS) 2 FLUSH IV ×2 (00:37→19:48)
[2024-06-14] MEDS: MORPHINE SULFATE 22.5 MG PO ×4 (03:24→21:00)
[2024-06-14] MEDS: DURAGESIC 50 MCG/HR PATCH 1 PATCH TRANSDERM (03:28)
[2024-06-14] MEDS: TYLENOL PO (04:27)
[2024-06-14 06:38] LABS: Hematocrit 27.1 % (37.0-47.0); Hemoglobin 8.5 g/dL (12.0-16.0); Mean Corp Hgb Conc. 31.4 g/dL (33.0-37.0); Mean Corpuscular Hgb 29.3 pg (27.0-31.0); Mean Corpuscular Volume 93.4 fL (81.0-99.0); Mean Platelet Volume 9.8 fL (7.4-10.4); Platelet Count 449 10^3/uL (130-400); Red Cell Dist. Width 13.1 % (11.5-14.5); White Blood Cell Count 13.5 10^3/uL (4.8-10.8)
[2024-06-14 07:04] LABS: Blood Urea Nitrogen 19 mg/dl (7-17); Calcium 9.1 mg/dl (8.4-10.2); Carbon Dioxide 30 mmol/L (22-30); Chloride 103 mmol/L (98-107); Estimated Creatinine Clearance 98 ml/min; Glucose 122 mg/dl (70-99); Potassium 5.1 mmol/L (3.5-5.1); Sodium 142 mmol/L (135-145); eGFR > 60.00
[2024-06-14 07:30] VITALS: BP 112/66
[2024-06-14] MEDS: MIRALAX 17 GRAMS PO (09:10)
[2024-06-14] MEDS: PROTONIX 40 MG PO (09:11)
[2024-06-14] MEDS: DECADRON PO (09:33)
[2024-06-14] MEDS: CYMBALTA DELAYED RELEASE PO (09:33)
[2024-06-14] MEDS: DILAUDID 0.5 MG IV ×2 (10:14→13:17)
--- NOTE | 2024-06-14 14:26 | W.PN.HOSP.TC ---
Today's Communication/Plan
-
repeat dose of dulcloax
abd xr reviewed
continue current pain medication regimen
Assessment / Plan
Assessment / Plan
CT pelvis
1. 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
2. ACUTE PATHOLOGIC FRACTURE of the S1 VERTEBRAL SEGMENT which appears new from 01/18/2024.

1. Sarcoma with right pelvic bone destruction
S1 pathological compression fracture
Severe pain
Ambulatory dysfunction
-CT pelvis showing large lytic/destructive osseous sarcoma of the pelvis extending through right sacroiliac joint
-Patient significant pain and related abilities from
-No saddle anesthesia/bladder/bowel dysfunction
-Patient currently on fentanyl patch 50 mcg/hr. added on morphine IR 15 mg every 6 hours and Dilaudid for breakthrough
-Minimal WB on RLE for now
-Patient worried about dexamethasone side effect and declining any further dosing.
-Case discussed with [facility] oncology and has been accepted for transfer for further evaluation by neurosurgery/oncological orthopedic. Patient is waiting bed at [facility]
2. GERD
-maintain on lansoprazole
3. Depression
-continue on duloxetine
4. Narcotic induced constipation
-Abdominal x-ray showing moderate stool burden on colon
-Patient has been hesitant taking laxatives
Full code
Waiting for bed availability at [facility]
Anticipated Discharge: 24 - 48 hours
Subjective/Interval History
-
Date of Service: June 14, 2024
no issues overnight
pain controlled
No BM overnight
Objective Data
-
Labs:
Laboratory Results
06/14/24
05:55
WBC 13.5 H
Hgb 8.5 L
Hct 27.1 L
Plt Count 449 H
Sodium 142
Potassium 5.1
Chloride 103
Carbon Dioxide 30
BUN 19 H
Creatinine 0.5 L
Glucose 122 H
Calcium 9.1
Vital Signs:
Vital Signs
Temp Pulse Resp BP Pulse Ox
97.7 F 53 14 112/66 99
06/14/24 07:30 06/14/24 07:30 06/14/24 07:30 06/14/24 07:30 06/14/24 07:30
I&O
06/13/24 06/14/24 06/15/24
06:59 06:59 06:59
Intake Total 1799 / 1800 1979
Balance 1800 / 1800 1979
Review of Systems
-
Respiratory: Reports No Symptoms
Cardiac: Reports No Symptoms
Abdomen/GI: Reports No Symptoms
Physical Exam
-
General: Well Nourished and No Apparent Distress
HEENT: Negative Oxygen
Respiratory: Clear to Auscultation
Cardiac: Regular Rhythm and S1/S2; Negative Murmur
GI: Soft and Nondistended
Neuro: Awake, Alert, Oriented and No Motor Deficits
[2024-06-14] MEDS: DULCOLAX 10 MG PO (14:50)
[2024-06-14 16:00] VITALS: BP 104/48
[2024-06-14] MEDS: LYRICA 50 MG PO (21:13)
[2024-06-14 22:39] VITALS: BP 110/60
[2024-06-15] MEDS: TYLENOL 650 MG PO (00:07)
--- NOTE | 2024-06-15 01:00 | PTCARENOTE ---
@2300: Telephone report given to Nevaeh Wells RN,at [facility]. Nevaeh requested for pt's #22 IV to stay intact and fentanyl patch 50mcg/Hr patch, on right upper arm,to remain intact on transfer.@0021;Pt picked up by Acute care ambulance,and
fentanyl verified with KIRK Owen RN and acute care ambulance staff prior to transfer.
--- NOTE | 2024-06-17 08:00 | W.DCSUMMARY ---
Discharge Summary
Discharge Data
Date of Admission: 06/11/24
Date of Discharge: 06/14/24
-
Pending Results: No
Hospital Course
Discharging Physician : Dr Varun Horne
Disposition : [facility]
Primary care physician : Dr. Linda Pepe
Principal Discharge diagnosis :
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
S1 pathological compression fracture
Ambulatory dysfunction
Narcotic induced constipation
Chronic Discharge diagnosis :
Gastroesophageal reflux disease
Depression/anxiety
Hospital Course :
Patient is a 49-year-old female with known history of sarcoma involving right pelvis came to ER for having worsening right hip/pelvic pain with ambulatory dysfunction. Patient apparently had a fall and came to ER for evaluation CT pelvis done in ER
showing slightly increasing sarcoma with S1 vertebral compression fracture. Patient was discharged home with symptomatic care and plan to follow-up with primary oncology in office. Unfortunately patient returned next day due to unable to control
pain with oral pain medication. Case was discussed with primary oncologist who recommended transfer to [facility] and admission endorsed to hospital meanwhile for pain management. Patient was started on home dose of oral
narcotic with added IV pain medication for pain control. Patient was also started on steroids initially although patient declined to be getting more steroids as patient have been on steroids in the past and did not like the side effects. Patient
also had narcotic induced constipation and abdominal x-ray showing moderate stool burden, patient was hesitant to take laxatives. Patient was transferred to [facility] for further management once bed available.
Important imaging findings :
CT pelvis
1. 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
2. ACUTE PATHOLOGIC FRACTURE of the S1 VERTEBRAL SEGMENT which appears new from 01/18/2024.
Procedure findings :
None
Discharge Plan
-
Patient Disposition: Acute Care Hospital
Discharge Orders:
Discharge Patient (As Directed); Ordered 06/14/24
Ordered By: Yeny Godinez
Discharge Date and Time
Discharge Date/Time: 06/15/24 00:40
Print Language: SCOTTISH
== END 2024-06-15 00:40 | disposition short-term general hospital (02) | DRG 948 ==
LOC: 3 WEST ACU 10:28
PROVIDERS: ADMITTING PHYSICIAN Internal Medicine; ATTENDING PHYSICIAN Hospitalist; EMERGENCY PHYSICIAN Student in an Organized Health Care Education/Training Program; FAMILY PHYSICIAN Student in an Organized Health Care Education/Training Program
DX: G89.3 Neoplasm related pain (acute) (chronic) (principal); C49.5 Malignant neoplasm of connective and soft tissue of pelvis; M84.58XA Pathological fracture in neoplastic disease, other specified site, initial encounter for fracture; K59.03 Drug induced constipation; T40.2X5A Adverse effect of other opioids, initial encounter; M54.41 Lumbago with sciatica, right side; F32.A Depression, unspecified; K21.9 Gastro-esophageal reflux disease without esophagitis; W19.XXXA Unspecified fall, initial encounter; Z79.891 Long term (current) use of opiate analgesic
CPT/HCPCS: 74018; 80048; 85025; 85027; 99285